=== PATIENT | female | born 1990 | race Caucasian/White ===

== ENCOUNTER 2017-12-14 12:00 | Observation (INO) | payer OTHER ==
[~2017-12-14] VITALS: Ht 149.9 cm; Wt 70.8 kg
[2017-12-14 12:34] VITALS: BP 97/58
[2017-12-14] MEDS ORDERED: FERR-89 PO (13:54)
[2017-12-14] MEDS ORDERED: PREN-134 PO (13:54)
== END 2017-12-14 13:10 | disposition home or self-care (01) ==
LOC: 4S 12:00
PROVIDERS: ADMIT Obstetrics & Gynecology; ATTEND Obstetrics & Gynecology
DX: O36.8130 Decreased fetal movements, third trimester, not applicable or unspecified (principal); Z3A.37 37 weeks gestation of pregnancy
CPT/HCPCS: 59025; G0378